=== PATIENT | male | born 1975 | race Caucasian/White ===

== ENCOUNTER 2025-04-20 10:46 | Inpatient (IN) ==
[2025-04-20] MEDS: OPTIRAY 320 125ml IV ONE (11:11)
--- NOTE | 2025-04-20 11:26 | Emergency Department Note ---
Impression & Plan Stroke-like symptoms, Diplopia, Leg weakness ED Provider Note NAME: CONCEPCION FAULKNER AGE: 50 SEX: M : 1975 ARRIVES VIA: Walk-In INFORMANT: Patient ED PROVIDER(S): Herb Eller DO CHIEF COMPLAINT: Double vision and right leg weakness and numbness HPI: Patient is a 50-year-old male who presents to the ER for right leg numbness in combination with weakness with pushing down and lifting up which has been present for the past 1 to 2 weeks he thinks. This Sunday he has noticed double vision. He denies any weakness or numbness in the arms or legs. No chest pain or shortness of breath. No nausea, vomiting, or diarrhea. No dysuria, urgency, or frequency. No other exacerbating or remitting factors. Double vision is seeing 2 images [id number]. If he closes 1 eye it resolves. ADDITIONAL HISTORY OBTAINED: Per HPI Chronic Medical/Social Conditions Affecting Care: Per HPI PAST MEDICAL HISTORY:See Below PAST SURGICAL HISTORY:See Below FAMILY HISTORY:See Below SOCIAL HISTORY:See Below HOME MEDICATIONS:See Below ALLERGIES:See Below VITALS:See Below PHYSICAL EXAMINATION: GENERAL: Sitting up in bed, alert, well appearing, well nourished, no distress, non-toxic EYE EXAM: normal conjunctiva. PERRL and EOM's grossly intact. OROPHARYNX: no exudate, no erythema, lips, buccal mucosa, and tongue normal and mucous membranes are moist NECK: supple, no nuchal rigidity, no adenopathy, non-tender LUNGS: Clear to auscultation. Normal chest wall mechanics HEART: no murmurs, S1 normal and S2 normal ABDOMEN: abdomen soft, non-tender, normo-active bowel sounds, no masses, no rebound or guarding. BACK: Back is symmetrical on inspection and there is no deformity, no midline tenderness, no CVA tenderness. SKIN: no rashes and no bruising UPPER EXTREMITIES: upper extremities are grossly normal. LOWER EXTREMITIES: Weakness of the right lower extremity with dorsiflexion. NEURO EXAM: Normal sensorium, cranial nerves II-XII intact, normal speech, no weakness of arms, no weakness in the left lower extremity. Unable to dorsiflex right ankle. No weakness with plantarflexion as well.. No drift. Finger to nose intact. Gross sensation intact. MEDICAL DECISION MAKING: Patient is a 50-year-old male who presents to the ER for weakness in the right lower extremity with plantar and dorsiflexion in combination with double vision. He was not a TNK candidate as symptoms started this past Sunday. IV was established and blood work was obtained. Labs showed no significant leukocytosis or anemia. INR unremarkable. BMP with mild hyponatremia at 135. LFTs bilirubin and troponin were negative. CT angios of the head and neck were clean. Case was discussed with telestroke neurology Dr. Vasquez who recommended admission and will place further recommendations. I discussed the case with the hospitalist for further evaluation management treatment. Consults/Care Managements Discussions: Per [facility] Triage Nursing notes reviewed. Limited review of prior medical records performed Vital Signs: reviewed and remarkable for no significant abnormalities Differential diagnosis: Differential Diagnosis includes but is not limited to ischemic Stroke, hemorrhagic stroke, bells palsy, mass, neoplasm, migraine headache, seizure, subarachnoid hemorrhage, TIA, and transient global amnesia. ER treatment provided: See below Diagnostics interpreted by me include EKG and cardiac monitoring as listed below: -Cardiac Monitoring: An order was placed for continuous cardiac monitoring. The monitor shows a rate of 90 with sinus rhythm. -ECG: Spoke with nursing staff on 2 separate occasions and was not obtained and patient was transferred to MRI. Will need to be obtained on the floor. -Laboratory studies:Interpreted by me as stated above in MDM and shown below. Imaging studies: Xrays: As interpreted by me:none CTs show: CT of the head per my pulmonary interpretation showed no acute pathology CT angios of the head and neck were negative per radiology Procedures:none Critical Care: None Past Med/Surg History Problem List (Updated 04/20/25 @ 15:01 by Herb Eller DO) Leg weakness (Acute) Hypertension Diplopia (Acute) Stroke-like symptoms (Acute) Acute pansinusitis Social History Smoking Status: Former smoker Tobacco Type: Cigarettes Feels Safe at Home: Yes Allergies Allergies Allergy/AdvReac Type Severity Reaction Status Date / Time No Known Allergies Allergy Unverified 04/20/25 13:26 Home Meds Home Medications Medication Instructions Recorded Confirmed amlodipine 10 mg tablet 10 mg PO DAILY 04/20/25 04/20/25 chlorthalidone 25 mg tablet 25 mg PO Q OTHER DAY 04/20/25 04/20/25 valsartan 160 mg tablet 160 mg PO DAILY 04/20/25 04/20/25 Results & Data (ED) Vital Signs Vital Signs - 24 hr 04/20/25 10:58 04/20/25 11:29 Temperature 36.4 C L Temperature Source Temporal Artery Scan Pulse Rate 92 H 78 Respiratory Rate 16 Respiratory Effort / Characteristics Non-Labored Spontaneous Respiratory Depth Normal Blood Pressure 137/99 Blood Pressure Mean 111 Pulse Oximetry 96 Oxygen Delivery Method Room Air Sepsis Recent Fever Within 48 Hours No Sepsis New/Unexplained Change in Mental Status No Sepsis Action Taken by Nursing No Action Required Laboratory Data 04/20/25 11:23 04/20/25 11:23 Lab Results 04/20/25 Range/Units 11:23 WBC 7.88 (4.8-10.8) K/ul RBC 4.94 (4.70-6.10) M/uL Hgb 17.2 (14.0-18.0) g/dl Hct 47.6 (42.0-52.0) % MCV 96.4 (80.0-100.0) fL MCH 34.8 H (25.0-34.0) pg MCHC 36.1 H (32.0-36.0) g/dL RDW Std Deviation 42.6 (36.4-46.3) fL RDW Coeff of Lilian 11.9 (11.5-14.5) % Plt Count 222 (130-400) K/uL MPV 10.4 (9.4-12.4) fL Immature Gran % (Auto) 0.4 % Neut % (Auto) 66.5 % Lymph % (Auto) 22.1 % Craven % (Auto) 9.3 % Eos % (Auto) 1.3 % Baso % (Auto) 0.4 % Neut # (Auto) 5.25 (1.40-6.50) K/uL Lymph # (Auto) 1.74 (1.20-3.40) K/uL Craven # (Auto) 0.73 H (0.11-0.59) K/uL Eos # (Auto) 0.10 (0.00-0.50) K/uL Baso # (Auto) 0.03 (0.00-0.20) K/uL Immature Gran # (Auto) 0.03 (0.01-0.20) K/uL PT 11.1 (9.0-12.0) Seconds INR 1.1 (0.9-1.1) APTT 29 (21-31) Seconds PTT Ratio 1.1 Sodium 135 L (136-145) mmol/L Potassium 3.8 (3.5-5.1) mmol/L Chloride 101 (98-107) mmol/L Carbon Dioxide 28 (21-32) mmol/L Anion Gap 6 (3-11) BUN 13 (6-23) mg/dl Creatinine 0.95 (0.6-1.4) mg/dl Est Cr Clr Drug Dosing 109.4 ml/min eGFR 98.73 BUN/Creatinine Ratio 13.7 (10-20) Glucose 115 H (70-99(Fasting)) mg/dl Calcium 9.3 (8.6-10.3) mg/dl Magnesium 2.1 (1.7-2.4) mg/dl Total Bilirubin 1.4 H (0.2-1.0) mg/dl AST 32 (13-39) U/L ALT 59 H (7-52) U/L Alkaline Phosphatase 83 (34-104) U/L Troponin I High Sens 12.4 (0-20) pg/ml Total Protein 7.4 (6.0-8.3) gm/dl Albumin 4.3 (3.4-5.0) gm/dl Globulin 3.1 (2.5-4.0) gm/dl Albumin/Globulin Ratio 1.4 (0.9-2) Administered Medications Discontinued Medications Ioversol (Optiray 320 125ml) 120 ml IV ONCE ONE Stop: 04/20/25 11:11 Last Admin: 04/20/25 11:11 Dose: 120 ml Documented By: [facility] Imaging Data Radiologist's Impression: Head CT 04/20/25 11:04 CT head/brain wo con CLINICAL HISTORY: 50 years-old Male with neuro deficit, acute stroke suspected. Acute stroke like symptoms TECHNIQUE: Multiple axial CT images of the head were obtained without contrast. A dose lowering technique was utilized adhering to the principles of ALARA. COMPARISON: CTA head of same day FINDINGS: No acute intracranial hemorrhage, midline shift, intracranial mass, hydrocephalus, territorial ischemia or abnormal extra-axial collection. The calvarium is intact. Near complete opacification of the nasal sinuses which contain mixed attenuation contents. There are scattered secretions within the sinuses. The bilateral maxillary sinus ostia are expanded. IMPRESSION: 1. No acute intracranial abnormality. 2. Severe paranasal sinus disease with hyperdense material which may represent inspissated mucosal debris. Fungal sinusitis considered less likely.. ACT 112: Negative or not required by law. The above report was generated using voice recognition software. It may contain grammatical, syntax or spelling errors. Electronically signed by: Jorge Heath M.D. 04/20/2025 11:48 AM Head CTA 04/20/25 11:04 CTA ANGIOGRAPHY OF THE HEAD CLINICAL HISTORY: neuro deficit, acute stroke suspected. Double vision. Leg numbness. COMPARISON STUDY: No previous studies for comparison. TECHNIQUE: Helical axial images of the head were obtained following uneventful intravenous administration of 120 cc of Optiray. Sagittal and coronal reconstructions were viewed as well as maximal intensity projections on an independent 3-D workstation. Automated exposure control was utilized for the study. A dose lowering technique was utilized adhering to the principles of ALARA. FINDINGS: Please note that the head CT will be reported separately. No acute intracranial hemorrhage, midline shift or mass effect is present. Brain volume is normal. Ventricular system is normal. There are no extra-axial collections. The bilateral M1, M2, A1 and A2 segments are patent. There is no intracranial aneurysm. Posterior circulation is intact. Note is made of near complete opacification of the nasal sinuses which contain mixed attenuation contents. There are scattered secretions within the sinuses. The bilateral maxillary sinus ostia are expanded. IMPRESSION: 1. No large vessel occlusion. No intracranial aneurysm. 2. Near complete opacification of the sinuses consistent with pansinusitis. Mixed attenuation contents within the sinuses. The findings may represent sinonasal polyposis. Fungal sinusitis is within the differential but considered less likely. ACT 112: Negative or not required by law. Electronically signed by: Bj Mcginnis M.D. 04/20/2025 11:31 AM Neck CTA 04/20/25 11:04 CT angio neck with con CLINICAL HISTORY: neuro deficit, acute stroke suspected. TECHNIQUE: Following the IV administration of 120 of Optiray, CT angiogram of the neck was performed from the aortic arch to the skull base. Images are reviewed in the axial, sagittal, and coronal planes. 3-D MIPS images are created and assessed. IV contrast was administered without complication. All measurements were calculated based on NASCET criteria. A dose lowering technique was utilized adhering to the principles of ALARA. CT DOSE: 1125.4 mGy.cm COMPARISON STUDY: None FINDINGS: Right vertebral artery is dominant and the left vertebral artery terminates in PICA, anatomic variant. No significant narrowing or occlusion seen at the common or internal carotid or vertebral arteries bilaterally. There is severe paranasal sinus disease. IMPRESSION: No significant arterial narrowing or occlusion seen at the neck. ACT 112: Negative or not required by law. The above report was generated using voice recognition software. It may contain grammatical, syntax or spelling errors. Electronically signed by: Concepcion Nicholson M.D. 04/20/2025 11:30 AM Discharge Plan Visit Data Chief Complaint: Visual Disturbance Stated Complaint: DOUBLE VISION, LEG AND HIP PAIN ED Provider: Herb Eller Discharge Problem: Stroke-like symptoms, Diplopia, Leg weakness Condition: Fair Forms Stand Alone Forms: [facility] [employer]!, Medications to Prevent Stroke Prescriptions Prescriptions: No Action chlorthalidone 25 mg tablet 25 mg PO Q OTHER DAY amlodipine 10 mg tablet 10 mg PO DAILY valsartan 160 mg tablet 160 mg PO DAILY Referrals Referrals: John Phillips [Primary Care Provider] - Discharge Problem: Leg weakness Qualifiers: Laterality: right Qualified Code(s): R29.898 - Other symptoms and signs involving the musculoskeletal system
--- NOTE | 2025-04-20 11:31 | CT Scan Report ---
CT angio neck with con CLINICAL HISTORY: neuro deficit, acute stroke suspected. TECHNIQUE: Following the IV administration of 120 of Optiray, CT angiogram of the neck was performed from the aortic arch to the skull base. Images are reviewed in the axial, sagittal, and coronal plane s. 3-D MIPS images are created and assessed. IV contrast was administered without complication. All m easurements were calculated based on NASCET criteria. A dose lowering technique was utilized adherin g to the principles of ALARA. CT DOSE: 1125.4 mGy.cm COMPARISON STUDY: None FINDINGS: Right vertebral artery is dominant and the left vertebral artery terminates in PICA, anatom ic variant. No significant narrowing or occlusion seen at the common or internal carotid or vertebral arteries bilaterally. There is severe paranasal sinus disease. IMPRESSION: No significant arterial narrowing or occlusion seen at the neck. ACT 112: Negative or not required by law. The above report was generated using voice recognition software. It may contain grammatical, syntax o r spelling errors. Electronically signed by: Paramjit Nicholson M.D. 04/20/2025 11:30 AM
--- NOTE | 2025-04-20 11:32 | CT Scan Report ---
CTA ANGIOGRAPHY OF THE HEAD CLINICAL HISTORY: neuro deficit, acute stroke suspected. Double vision. Leg numbness. COMPARISON STUDY: No previous studies for comparison. TECHNIQUE: Helical axial images of the head were obtained following uneventful intravenous administr ation of 120 cc of Optiray. Sagittal and coronal reconstructions were viewed as well as maximal inten sity projections on an independent 3-D workstation. Automated exposure control was utilized for the study. A dose lowering technique was utilized adhering to the principles of ALARA. FINDINGS: Please note that the head CT will be reported separately. No acute intracranial hemorrhage, midline shift or mass effect is present. Brain volume is normal. Ventricular system is normal. There are no extra-axial collections. The bilateral M1, M2, A1 and A2 segments are patent. There is no int racranial aneurysm. Posterior circulation is intact. Note is made of near complete opacification of t he nasal sinuses which contain mixed attenuation contents. There are scattered secretions within the sinuses. The bilateral maxillary sinus ostia are expanded. IMPRESSION: 1. No large vessel occlusion. No intracranial aneurysm. 2. Near complete opacification of the sinuses consistent with pansinusitis. Mixed attenuation content s within the sinuses. The findings may represent sinonasal polyposis. Fungal sinusitis is within the differential but considered less likely. ACT 112: Negative or not required by law. Electronically signed by: Bj Mcginnis M.D. 04/20/2025 11:31 AM
[2025-04-20 11:50] LABS: Hematocrit (blood only) 47.6 % (42.0-52.0); Hemoglobin 17.2 g/dl (14.0-18.0); Immature Granulocytes # (auto) 0.03 K/uL (0.01-0.20); Immature Granulocytes % (auto) 0.4 %; Mean Corpuscular Hemoglobin 34.8 pg (25.0-34.0); Mean Corpuscular Volume 96.4 fL (80.0-100.0); Platelet Count 222 K/uL (130-400); RDW Standard Deviation 42.6 fL (36.4-46.3); Red Blood Count 4.94 M/uL (4.70-6.10); White Blood Count 7.88 K/ul (4.8-10.8)
--- NOTE | 2025-04-20 11:50 | CT Scan Report ---
CT head/brain wo con CLINICAL HISTORY: 50 years-old Male with neuro deficit, acute stroke suspected. Acute stroke like sy mptoms TECHNIQUE: Multiple axial CT images of the head were obtained without contrast. A dose lowering tech nique was utilized adhering to the principles of ALARA. COMPARISON: CTA head of same day FINDINGS: No acute intracranial hemorrhage, midline shift, intracranial mass, hydrocephalus, territorial ischem ia or abnormal extra-axial collection. The calvarium is intact. Near complete opacification of the nasal sinuses which contain mixed attenu ation contents. There are scattered secretions within the sinuses. The bilateral maxillary sinus osti a are expanded. IMPRESSION: 1. No acute intracranial abnormality. 2. Severe paranasal sinus disease with hyperdense material which may represent inspissated mucosal de bris. Fungal sinusitis considered less likely.. ACT 112: Negative or not required by law. The above report was generated using voice recognition software. It may contain grammatical, syntax o r spelling errors. Electronically signed by: Jorge Heath M.D. 04/20/2025 11:48 AM
[2025-04-20 12:08] LABS: Alanine Aminotransferase 59.0 U/L (7-52); Albumin Globulin Ratio 1.4 (0.9-2); Albumin Level 4.3 gm/dl (3.4-5.0); Alkaline Phosphatase 83.0 U/L (34-104); Anion Gap 6.0 (3-11); Bilirubin,Total 1.4 mg/dl (0.2-1.0); Blood Urea Nitrogen 13.0 mg/dl (6-23); Calcium 9.3 mg/dl (8.6-10.3); Carbon Dioxide 28.0 mmol/L (21-32); Chloride 101.0 mmol/L (98-107); Creatinine Clr Calc Pharmacy 109.4 ml/min; Globulin 3.1 gm/dl (2.5-4.0); Glucose 115.0 mg/dl (70-99(Fasting)); Magnesium 2.1 mg/dl (1.7-2.4); Potassium 3.8 mmol/L (3.5-5.1); Sodium 135.0 mmol/L (136-145); Total Protein 7.4 gm/dl (6.0-8.3)
[2025-04-20 12:20] LABS: INR 1.1 (0.9-1.1); Partial Thromboplastin Time 29 Seconds (21-31); Prothrombin Time 11.1 Seconds (9.0-12.0)
[2025-04-20] MEDS ORDERED: cefTRIAXone SODIUM 2,000 MG/50 ML BAG IV STA (12:20)
--- NOTE | 2025-04-20 12:47 | History & Physical Report ---
Date of Service April 20, 2025 Assessment & Plan (1) Acute pansinusitis: (2) Stroke-like symptoms: (3) Diplopia: (4) Hypertension: Plan This patient is a 50-year-old male with PMHx of HTN. #Pansinusitis Head CT on arrival revealed severe paranasal sinus disease Will head/neck CTA revealed no large vessel occlusions, it did note near complete opacification consistent with pansinusitis; fungal sinusitis is within the differential but less likely Ceftriaxone 2000 mg IV x 1 Will plan to initiate Augmentin 875-125 mg tablets BID x 7 days If no improvement, could consider nasal irrigation or intranasal glucocorticoids #Strokelike symptoms | diplopia Patient's symptoms are >72h at time of admission; not a TNKase candidate No prior h/o stroke DDx includes diplopia in the setting of uncontrolled HTN + acute sinusitis However, this would not explain his right lower extremity deficits Clinically, he exhibits 2/5 dorsiflexion in the right ankle when compared to 5/5 in the left ankle Initial head imaging (as above) Brain MRI ordered, pending Echocardiogram with bubble study ordered, pending Dysphagia screen ordered ABCD2 score for TIA: 5 Aspirin 325 mg p.o. x 1 loading dose given in the ED Initiate DAPT with aspirin 81 mg daily and Plavix 75 mg daily #HTN No need for permissive hypertension given patient is now > 72h out from initially developing diplopia Continue amlodipine, valsartan daily Continue chlorthalidone every other day Disposition: Obs - admit to MedSurg telemetry VTE PPx: SCDs + DAPT History of Present Illness Chief Complaint: Visual disturbance Primary Care Provider: John Phillips Mr. Layne is a 50-year-old male with PMH of HTN. He presented on 04/20 after developing double vision in both eyes. Patient first noticed double vision upon waking on Tuesday 04/17. Since that time, double vision has been constant in both eyes. No prior history of issues with his eyes. Patient does not wear glasses or contacts at baseline. He does not follow with an eye doctor. Additionally, he notes that he has had right leg weakness x 2 weeks. He feels like his right leg is "asleep" all the time. Not painful. 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 Additionally, patient has had difficulty with taste and smell over the past year. No sick contacts to his knowledge. No prior history of strokes or TIAs. Patient denies slurred speech or facial droop. He denies headaches. While he does not have a personal history of diabetes, he does have a family history of diabetes. No prior history of thyroid issues. Patient took his regular morning medicine today. He takes valsartan 160 mg daily, amlodipine 10 mg daily, and chlorthalidone 25 mg every other day (which she last took yesterday). He denies any missed doses over the past week. He does check his blood pressure regularly at home with a blood pressure cuff, and reports that his most recent blood pressure was ~140/108 on Sunday. Patient denies smoking, tobacco use, or alcohol use in the past 2 days. He has had "white" nasal discharge that has been thick over the past week. NKDA. No prior issues with taking aspirin. No recent trauma to the head, neck, or right leg. No prior history of vertigo. Patient's vitals are stable at time of admission. ED course: Ceftriaxone 2000 mg IV ROS: Patient endorses diplopia (in both eyes), and right LE and hip weakness/numbness/tingling. Patient denies fever, chills, night-sweats, dizziness, lightheadedness with walking, headache, photophobia, cough, SOB, pleuritic CP, chest pain, abdominal pain, N/V/D, change in urinary/bowel habits, N/T in the UEs, N/T in the LLE, or pain in the RLE. Allergies Allergy/AdvReac Type Severity Reaction Status Date / Time No Known Allergies Allergy Unverified 04/20/25 13:26 Home Medications Medication Instructions Recorded Confirmed Type amlodipine 10 mg tablet 10 mg PO DAILY 04/20/25 04/20/25 History chlorthalidone 25 mg tablet 25 mg PO Q OTHER DAY 04/20/25 04/20/25 History valsartan 160 mg tablet 160 mg PO DAILY 04/20/25 04/20/25 History Past Med/Surg History Problem List (Updated 04/20/25 @ 15:01 by Herb Eller DO) Leg weakness (Acute) Hypertension Diplopia (Acute) Stroke-like symptoms (Acute) Acute pansinusitis Social History Smoking Status: Former smoker Tobacco Type: Cigarettes Second Hand Exposure: No; Do You Dip or Chew Tobacco: No; Tobacco Cessation Education Requested by Patient: No Hx Alcohol Use: Yes Alcohol type: beer Hx Substance Use: No Preferred Language: Lao Communication Ability: Effective Home Health Clinical Supervisor Required: No Beliefs That Will Affect Care: None Current Living Situation: Alone Other Information That Helps Us Care for You: No Feels Safe at Home: Yes Safety Concerns: Feels Safe At This Time Assistive Devices: None Review of Systems Review of Systems: See HPI above Physical Exam Physical Exam: General: no acute distress; pleasant affect; non-toxic appearing; cooperative; SpO2 96% on RA HEENT: normocephalic, atraumatic; PERRLA with EOMs intact; vision and hearing intact; patient demonstrates ability to protrude and wiggle tongue bilaterally without unilateral deficits; patient demonstrates me to smile, frown, and lift eyebrows without unilateral deficits Neck: supple; trachea midline Skin: warm, dry without signs of tenting; no cyanosis; no rashes, bruising, lesions, or erythema noted CV: chest wall NTP; RRR; S1/S2 normal; no murmurs/rubs/gallops; pulses intact and symmetric at radial, DP, and PT Lungs: no acute respiratory distress; symmetrical chest wall expansion; clear breath sounds across all lung duong w/o adventitious sounds; no wheezing ABD: Soft, NTP; BS present; no rebound/guarding; no distention MSK: no tics or fasciculations; no edema noted in the LEs b/l, nonerythematous; 5/5 project controller strength bilaterally LEs: 2/5 dorsiflexion in the left ankle compared to 5/5 in the right ankle; 5/5 plantarflexion in the ankles bilaterally Neuro: A&Ox3; normal mood and affect; negative pronator drift; fluent speech; no slurred speech or facial droop appreciated; patient reports diminished sensation in the left lower extremity compared to the right lower extremity assessed via light touch at the feet, ankles, and knees Results & Data Results & Data Vital Signs (Past 12 Hours) Vital Signs Temp Pulse Resp BP Pulse Ox O2 Del Method 04/20/25 11:29 78 04/20/25 10:58 36.4 C L 92 H 16 137/99 96 Room Air Laboratory Results Abnormal lab results 04/20/25 Range/Units 11:23 MCH 34.8 H (25.0-34.0) pg MCHC 36.1 H (32.0-36.0) g/dL [place] # (Auto) 0.73 H (0.11-0.59) K/uL Sodium 135 L (136-145) mmol/L Glucose 115 H (70-99(Fasting)) mg/dl Total Bilirubin 1.4 H (0.2-1.0) mg/dl ALT 59 H (7-52) U/L Diagnostic Findings Head CT 04/20/25 11:04 CT head/brain wo con CLINICAL HISTORY: 50 years-old Male with neuro deficit, acute stroke suspected. Acute stroke like symptoms TECHNIQUE: Multiple axial CT images of the head were obtained without contrast. A dose lowering technique was utilized adhering to the principles of ALARA. COMPARISON: CTA head of same day FINDINGS: No acute intracranial hemorrhage, midline shift, intracranial mass, hydrocephalus, territorial ischemia or abnormal extra-axial collection. The calvarium is intact. Near complete opacification of the nasal sinuses which contain mixed attenuation contents. There are scattered secretions within the sinuses. The bilateral maxillary sinus ostia are expanded. IMPRESSION: 1. No acute intracranial abnormality. 2. Severe paranasal sinus disease with hyperdense material which may represent inspissated mucosal debris. Fungal sinusitis considered less likely.. ACT 112: Negative or not required by law. The above report was generated using voice recognition software. It may contain grammatical, syntax or spelling errors. Electronically signed by: Jorge Heath M.D. 04/20/2025 11:48 AM Head CTA 04/20/25 11:04 CTA ANGIOGRAPHY OF THE HEAD CLINICAL HISTORY: neuro deficit, acute stroke suspected. Double vision. Leg numbness. COMPARISON STUDY: No previous studies for comparison. TECHNIQUE: Helical axial images of the head were obtained following uneventful intravenous administration of 120 cc of Optiray. Sagittal and coronal reconstructions were viewed as well as maximal intensity projections on an independent 3-D workstation. Automated exposure control was utilized for the study. A dose lowering technique was utilized adhering to the principles of ALARA. FINDINGS: Please note that the head CT will be reported separately. No acute intracranial hemorrhage, midline shift or mass effect is present. Brain volume is normal. Ventricular system is normal. There are no extra-axial collections. The bilateral M1, M2, A1 and A2 segments are patent. There is no intracranial aneurysm. Posterior circulation is intact. Note is made of near complete opacification of the nasal sinuses which contain mixed attenuation contents. There are scattered secretions within the sinuses. The bilateral maxillary sinus ostia are expanded. IMPRESSION: 1. No large vessel occlusion. No intracranial aneurysm. 2. Near complete opacification of the sinuses consistent with pansinusitis. Mixed attenuation contents within the sinuses. The findings may represent sinonasal polyposis. Fungal sinusitis is within the differential but considered less likely. ACT 112: Negative or not required by law. Electronically signed by: Bj Mcginnis M.D. 04/20/2025 11:31 AM Neck CTA 04/20/25 11:04 CT angio neck with con CLINICAL HISTORY: neuro deficit, acute stroke suspected. TECHNIQUE: Following the IV administration of 120 of Optiray, CT angiogram of the neck was performed from the aortic arch to the skull base. Images are reviewed in the axial, sagittal, and coronal planes. 3-D MIPS images are created and assessed. IV contrast was administered without complication. All measurements were calculated based on NASCET criteria. A dose lowering technique was utilized adhering to the principles of ALARA. CT DOSE: 1125.4 mGy.cm COMPARISON STUDY: None FINDINGS: Right vertebral artery is dominant and the left vertebral artery terminates in PICA, anatomic variant. No significant narrowing or occlusion seen at the common or internal carotid or vertebral arteries bilaterally. There is severe paranasal sinus disease. IMPRESSION: No significant arterial narrowing or occlusion seen at the neck. ACT 112: Negative or not required by law. The above report was generated using voice recognition software. It may contain grammatical, syntax or spelling errors. Electronically signed by: Paramjit Nicholson M.D. 04/20/2025 11:30 AM ECG Additional Comments: ECG ordered, pending Code Status & VTE Plan Code Status Full code VTE Prophylaxis Plan VTE Prophylaxis will be ordered: Yes PG Care Time/CCT Total # of Minutes Spent Total Time Spent with Patient: Total time spent is greater than 50% in coordination of care (as documented) at patient's floor/unit and/or counseling patient: Coding [place] [address] INT INP/OBS CARE 3/75MIN Patient Type Established Medical Decision Making High Complexity Diagnoses Acute pansinusitis J01.40 Stroke-like symptoms R29.90 Diplopia H53.2 Hypertension I10
[2025-04-20] MEDS ORDERED: PHARMACIST DISCHARGE MED REC CONSULT PRN (13:28)
--- NOTE | 2025-04-20 14:34 | XCELERA ---
[id number]
--- NOTE | 2025-04-20 15:20 | Magnetic Resonance Report ---
MRI OF THE BRAIN WITHOUT IV CONTRAST CLINICAL HISTORY: Double vision. Right leg numbness. COMPARISON STUDY: Head CT and CTA of the head performed earlier today. TECHNIQUE: MRI of the brain was performed utilizing various T1 and T2-weighted sequences in the axial , sagittal, and coronal planes. IV contrast was not administered for this examination. FINDINGS: Brain parenchyma: There are no foci of restricted diffusion to suggest acute infarct. No acute intrac ranial hemorrhage, midline shift or mass effect is present. No intracranial masses are identified on unenhanced exam. There is no significant parenchymal signal abnormality. Ventricles, sulci, and cisterns: There is no hydrocephalus. The basal cisterns are patent. There are no extra-axial collections. Pituitary and sella: Unremarkable. Intracranial vasculature: Flow-voids for the major intracranial vessels are present. Orbits: Orbital contents are unremarkable. Sinuses and mastoids: Incomplete opacification of the paranasal sinuses is better depicted on head CT performed earlier today. Mixed signal intensity contents within the sinuses are noted. There is wide omar of the bilateral maxillary sinus ostia. Calvarium: No calvarial lesions are identified. Cervical cord: Partially visualized cervical spinal cord is normal in morphology and signal intensity . IMPRESSION: 1. No acute intracranial findings. 2. Findings consistent with pansinusitis. ACT 112: Negative or not required by law. Electronically signed by: Bj Mcginnis M.D. 04/20/2025 3:18 PM
[2025-04-20] MEDS ORDERED: ASPIRIN 81 MG CHEW PO STA (16:09)
[2025-04-20] MEDS ORDERED: Nursing to Pharmacy Communication SCH ×2 (16:15)
[2025-04-20] MEDS: ASPIRIN CHEW 324 MG PO STA (17:19)
[2025-04-20] MEDS: ASPIRIN 81 MG CHEW PO ONE (17:20)
[2025-04-20] MEDS: cefTRIAXone SODIUM 2,000 MG/50 ML BAG IV STA (19:28)
[2025-04-20] MEDS: ACETAMINOPHEN 325 MG TAB PO PRN (23:20)
[2025-04-21 07:09] LABS: Hematocrit (blood only) 49.4 % (42.0-52.0); Hemoglobin 17.1 g/dl (14.0-18.0); Immature Granulocytes # (auto) 0.03 K/uL (0.01-0.20); Immature Granulocytes % (auto) 0.3 %; Mean Corpuscular Hemoglobin 33.1 pg (25.0-34.0); Mean Corpuscular Volume 95.7 fL (80.0-100.0); Platelet Count 228 K/uL (130-400); RDW Standard Deviation 42.4 fL (36.4-46.3); Red Blood Count 5.16 M/uL (4.70-6.10); White Blood Count 9.68 K/ul (4.8-10.8)
[2025-04-21 07:27] LABS: Anion Gap 8.0 (3-11); Blood Urea Nitrogen 14.0 mg/dl (6-23); Calcium 9.2 mg/dl (8.6-10.3); Carbon Dioxide 27.0 mmol/L (21-32); Chloride 103.0 mmol/L (98-107); Cholesterol 134.0 mg/dl (0-200); Creatinine Clr Calc Pharmacy 102.0 ml/min; Glucose 106.0 mg/dl (70-99(Fasting)); HDL Cholesterol 34.0 mg/dl; Potassium 3.6 mmol/L (3.5-5.1); Sodium 138.0 mmol/L (136-145); Triglycerides 73.0 mg/dl (0-150)
[2025-04-21] MEDS: CHLORTHALIDONE 25 MG TAB PO SCH (07:29)
[2025-04-21] MEDS: AMOXICILLIN/CLAVULANATE 875 MG TAB PO SCH (07:30)
[2025-04-21] MEDS: VALSARTAN 80 MG TAB PO SCH (07:30)
[2025-04-21] MEDS: ASPIRIN 81 MG ECTAB PO SCH (07:31)
[2025-04-21] MEDS: CLOPIDOGREL BISULFATE 75 MG TAB PO SCH (07:32)
[2025-04-21 07:38] LABS: Thyroid Stimulating Hormone 2.33 uIu/ml (0.300-4.500)
[2025-04-21 08:47] LABS: Hemoglobin A1C 5.3 % (4.5-5.6)
[2025-04-21] MEDS: MAGNESIUM SULFATE / D5W 1 GM/100 ML BAG IV ONE (10:04)
--- NOTE | 2025-04-21 11:56 | Discharge Summary ---
Discharge Summary Date of Service April 21, 2025 Principal Dx & Hospital Course #1 = Principal Diagnosis (1) Acute pansinusitis: (2) Stroke-like symptoms: (3) Diplopia: (4) Hypertension: Plan This patient is a 50-year-old male with PMHx of HTN. He presented on 04/20 after developing diplopia upon waking the morning of Tuesday 04/17. #Pansinusitis Head CT on arrival revealed severe paranasal sinus disease While head/neck CTA revealed no large vessel occlusions, it did note near complete opacification consistent with pansinusitis; fungal sinusitis is within the differential but less likely Ceftriaxone 2000 mg IV x 2 in the hospital Clinically, patient does report that his nasal discharge is improving at time of discharge Will plan to initiate Augmentin 875-125 mg tablets BID x 5 additional days If no improvement, could consider nasal irrigation or intranasal glucocorticoids #Strokelike symptoms | bilateral diplopia Patient's symptoms are >72h at time of admission; not a TNKase candidate No prior h/o stroke Patient does not wear glasses or contacts at baseline DDx includes diplopia in the setting of uncontrolled HTN + acute pansinusitis However, this did not initially explain his RLE deficits Clinically, he exhibits 2/5 dorsiflexion in the right ankle when compared to 5/5 in the left ankle Initial head imaging (as above) Brain MRI did not reveal any acute intracranial findings, but was consistent with pansinusitis Echocardiogram with bubble study did not reveal atrial septal defect TSH, A1c, and lipid panel all WNL Suspect that patient's diplopia could be due to pansinusitis plus uncontrolled hypertension However, DDx still includes TIA Will plan to discharge patient on aspirin 81 mg p.o. daily x 21 days, or until seen for follow-up Patient reports his diplopia has not resolved at time of discharge Will touch base with case management about setting up ophthalmology appointment as soon as possible Patient instructed not to drive until seen by ophthalmology for follow-up #Right lower extremity pain/weakness Patient began having pain in the right hip shooting down his leg on the morning of discharge Suspected piriformis syndrome Magnesium sulfate 1 g IV x 1 Diclofenac gel application BID PRN PT evaluation appreciated provide exercises for home #HTN No need for permissive hypertension given patient is now > 72h out from initially developing diplopia Continue amlodipine Continue chlorthalidone every other day Continue valsartan, and will plan to switch from QAM -> QPM If no improvement at this adjustment, could consider increasing current regimen Day of discharge 04/21: Patient reports that he has new onset of pain shooting down from his right hip into his right foot. While yesterday, he reported he only had weakness in his right lower extremity, he is now experiencing pain worse with getting up and moving around. His vision is approximate the same as yesterday (blurry vision in both eyes). However, whenever he closes 1 eye, he can see clearly. Patient reports that his nasal discharge has improved, and is no longer having "white, thick" nasal discharge. However his taste and smell still feel off. Additionally, patient reports that he forgot to mention that, approximately 2 weeks ago, he had an episode where he felt his "vision was going bad". 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 Overall, the patient feels well, but is still concerned regarding his double vision. ROS: Patient endorses double vision, nasal discharge (improving), loss of taste and smell, and pain/weakness shooting down the right hip into the foot. Patient denies fever, chills, night sweats, tinnitus, photophobia, neck pain, chest pain, SOB, cough, abdominal pain, N/V/D, urinary or fecal incontinence, saddle esthesia, or changes in urinary or bowel habits. Disposition: Discharge home with close ophthalmology follow-up Notes For Next Care Provider Patient admitted 04/20 - 04/21 for stroke-work up in the setting of new-onset, non-resolving diplopia and RLE deficits. While stroke workup was negative (brain MRI negative for acute abnormalities) DDx still includes TIA, and will plan to discharge patient on aspirin 81 mg daily x 21 days. It is possible that patient's elevated blood pressure is leading to diplopia. We will switch his valsartan from 160 mg in the morning to 160 mg at night and see if this assists with better blood pressure control throughout the day. Could consider increasing of his current medications if no improvement It is suspected that his right lower extremity deficits are unrelated, and due to piriformis syndrome. Diclofenac gel Rx on discharge. Case management working to set him up with ophthalmology appointment for ongoing diplopia as soon as possible. Patient has been instructed not to drive until seen by ophthalmology. Admission HPI Per Admitting Provider Mr. Layne is a 50-year-old male with PMH of HTN. He presented on 04/20 after developing double vision in both eyes. Patient first noticed double vision upon waking on Tuesday 04/17. Since that time, double vision has been constant in both eyes. No prior history of issues with his eyes. Patient does not wear glasses or contacts at baseline. He does not follow with an eye doctor. Additionally, he notes that he has had right leg weakness x 2 weeks. He feels like his right leg is "asleep" all the time. Not painful. No recent injuries to his leg, but he does work as a aerospace products sales engineer, reports he had something in his back pocket while sitting all day for a football game; was concerned that he might of tweaked something in his leg. Additionally, patient has had difficulty with taste and smell over the past year. No sick contacts to his knowledge. No prior history of strokes or TIAs. Patient denies slurred speech or facial droop. He denies headaches. While he does not have a personal history of diabetes, he does have a family history of diabetes. No prior history of thyroid issues. Patient took his regular morning medicine today. He takes valsartan 160 mg daily, amlodipine 10 mg daily, and chlorthalidone 25 mg every other day (which she last took yesterday). He denies any missed doses over the past week. He does check his blood pressure regularly at home with a blood pressure cuff, and reports that his most recent blood pressure was ~140/108 on Sunday. Patient denies smoking, tobacco use, or alcohol use in the past 2 days. He has had "white" nasal discharge that has been thick over the past week. NKDA. No prior issues with taking aspirin. No recent trauma to the head, neck, or right leg. No prior history of vertigo. Patient's vitals are stable at time of admission. ED course: Ceftriaxone 2000 mg IV ROS: Patient endorses diplopia (in both eyes), and right LE and hip weakness/numbness/tingling. Patient denies fever, chills, night-sweats, dizziness, lightheadedness with walking, headache, photophobia, cough, SOB, pleuritic CP, chest pain, abdominal pain, N/V/D, change in urinary/bowel habits, N/T in the UEs, N/T in the LLE, or pain in the RLE. Admission Exam Per Admitting Provider General: no acute distress; pleasant affect; non-toxic appearing; cooperative; SpO2 96% on RA HEENT: normocephalic, atraumatic; PERRLA with EOMs intact; vision and hearing intact; patient demonstrates ability to protrude and wiggle tongue bilaterally without unilateral deficits; patient demonstrates me to smile, frown, and lift eyebrows without unilateral deficits Neck: supple; trachea midline Skin: warm, dry without signs of tenting; no cyanosis; no rashes, bruising, lesions, or erythema noted CV: chest wall NTP; RRR; S1/S2 normal; no murmurs/rubs/gallops; pulses intact and symmetric at radial, DP, and PT Lungs: no acute respiratory distress; symmetrical chest wall expansion; clear breath sounds across all lung duong w/o adventitious sounds; no wheezing ABD: Soft, NTP; BS present; no rebound/guarding; no distention MSK: no tics or fasciculations; no edema noted in the LEs b/l, nonerythematous; 5/5 water resources project manager strength bilaterally LEs: 2/5 dorsiflexion in the left ankle compared to 5/5 in the right ankle; 5/5 plantarflexion in the ankles bilaterally Neuro: A&Ox3; normal mood and affect; negative pronator drift; fluent speech; no slurred speech or facial droop appreciated; patient reports diminished sensation in the left lower extremity compared to the right lower extremity assessed via light touch at the feet, ankles, and knees Discharge Exam General: no acute distress; pleasant affect; patient seen in conjunction with Dr. Plascencia at bedside; cooperative; SpO2 93% on RA HEENT: normocephalic, atraumatic; PERRLA with EOMs intact; vision and hearing intact; patient demonstrates ability to protrude and wiggle tongue bilaterally without unilateral deficits; patient demonstrates me to smile, frown, and lift eyebrows without unilateral deficits Neck: supple; trachea midline Skin: warm, dry without signs of tenting; no cyanosis; no rashes, bruising, lesions, or erythema noted CV: chest wall NTP; RRR; S1/S2 normal; no murmurs/rubs/gallops; pulses intact and symmetric at radial, DP, and PT Lungs: no acute respiratory distress; symmetrical chest wall expansion; clear breath sounds across all lung duong w/o adventitious sounds; no wheezing ABD: Soft, NTP; BS present; no rebound/guarding; no distention MSK: no tics or fasciculations; no edema noted in the LEs b/l, nonerythematous; 5/5 water resources project manager strength bilaterally LEs: Patient is still exhibiting deficits in the left ankle: 2/5 dorsiflexion in the left ankle compared to 5/5 in the right ankle; 5/5 plantarflexion in the ankles bilaterally; 5/5 strength when flexing the knees bilateral strength; patient appreciates ability to stand and ambulate independently Back: Patient exhibits point tenderness at the right piriformis with palpation Neuro: A&Ox3; normal mood and affect; negative pronator drift; fluent speech; no slurred speech or facial droop appreciated Discharge Plan Discharge Items Patient Disposition: Home - Self-Care Reason For Visit: CVA/TIA R/O DIPLOPIA Discharge Diagnosis: Diplopia, piriformis syndrome Condition on Discharge: Fair Activity: As commented below Activity Comment: Gradually increase previous activity as tolerated Non-emergency contact: Primary Care Provider and Lean Engineer Call non-emergency contact if: you have any medication questions, your symptoms worsen, your pain is not controlled and you have a fever Follow-up/Referrals: John Phillips [Primary Care Provider] - 04/28/25 10:40 am Diet: Regular Addtl Attending Provider Instructions: You were hospitalized at [facility] from 04/20 - 04/21 after developing double vision in both eyes. On arrival, you are supported you had weakness in your right lower extremity, as if your leg had "fallen asleep". Due to concern for vision changes and unilateral deficits, you underwent a stroke workup. Imaging of your brain revealed no acute abnormalities. However, with these vision changes, we recommend that you continue to take aspirin 81 mg daily to prevent TIAs (or "transient ischemic attacks" or "mini strokes"), which may not show up on imaging. It is suspected that your changes in vision could be due to something called "severe pansinusitis", which was seen on imaging. This is where you have inflammation of your sinuses, which could potentially be affecting your vision. We plan to send you home on an antibiotic (Augmentin) for the next several days to see if this improves your symptoms. Our telephonic nurse case manager are currently working to set you up with an ophthalmology appointment as soon as possible for your ongoing blurry vision. Until you are seen by ophthalmology for follow-up and have a full vision exam conducted, please do not drive or operate heavy machinery. Additionally, you noted that you had pain in your right hip shooting down your leg on the morning of discharge. After being assessed at bedside, it is determined that this might be caused by something called "piriformis syndrome". This is where you have swelling and a muscle in your lower back that leads to nerve impingement. Please see attached pamphlet for exercises, which can help to stretch/loosen the piriformis muscle. New prescriptions on discharge: - Augmentin 875-125 mg tablets twice daily x 5 days - Diclofenac 4% gel application to the right lower back/hip twice daily as needed for pain - Aspirin 81 mg daily x 21 days Medication adjustment: Please stop taking valsartan 160 mg in the morning, and switch to taking it at nighttime before bed Please plan to follow-up with your PCP in the next 7 to 10 days for a transitional care appointment. If you develop any new or worsening symptoms, such as fever, chills, full loss of vision, headaches, intractable nausea and vomiting, slurred speech, facial droop, or worsening of unilateral deficits, please return to the emerged department immediately. It was a pleasure taking care of you. Please reach out with any questions or concerns. Sincerely, The Hospital medicine team at [facility] Pending Studies at Discharge: No Stand-Alone Forms: My [facility] Medications and DC Order Prescriptions: New amoxicillin-pot clavulanate 875-125 mg Tablet 1 tab PO BIDM 5 Days Qty: 10 0RF Rx Instructions: Take 1 tablet by mouth twice daily aspirin 81 mg Tablet,Delayed Release (Dr/Ec) 81 mg PO QAM Qty: 21 0RF Rx Instructions: Take 1 tablet by mouth daily x 21 days diclofenac sodium [Voltaren Arthritis Pain] 1 % Gel 4 g EXT BID PRN (Reason: Piriformis syndrome) Qty: 100 0RF Rx Instructions: Apply 4 g to the right piriformis muscle twice daily as needed for pain Continued chlorthalidone 25 mg tablet 25 mg PO Q OTHER DAY amlodipine 10 mg tablet 10 mg PO DAILY Changed valsartan 160 mg tablet 160 mg PO HS Qty: 0 0RF Discharge Orders: Discharge Order (Routine); Ordered 04/21/25 Ordered By: Tito Hawkins/Other Patient Handouts: Symptoms of Stroke, Hip Rotator (Piriformis) Stretch, ED Double Vision (Diplopia) Admission Data Admit Date/Time: 04/20/25 13:32 Attending Provider: Duglas Plascencia Admit Provider: Duglas Plascencia Primary Care Provider: John Phillips Other Providers: Herb Li Other Interventions: Discharge Summary Assessment (RN) Last Done: 04/21/25 13:09 Hospital Stay Data Consultations 04/20/25 12:20 ED Decision to Admit Stat Diagnostic Imagining Performed 04/20/25 11:04 CT angio head w con Stat CT angio neck with con Stat CT head/brain wo con Stat 04/20/25 13:28 MR brain wo con Urgent Discharge Instructions Given to Patient (Per Discharging Provider) You were hospitalized at [facility] from 04/20 - 04/21 after developing double vision in both eyes. On arrival, you are supported you had weakness in your right lower extremity, as if your leg had "fallen asleep". Due to concern for vision changes and unilateral deficits, you underwent a stroke workup. Imaging of your brain revealed no acute abnormalities. However, with these vision changes, we recommend that you continue to take aspirin 81 mg daily to prevent TIAs (or "transient ischemic attacks" or "mini strokes"), which may not show up on imaging. It is suspected that your changes in vision could be due to something called "severe pansinusitis", which was seen on imaging. This is where you have inflammation of your sinuses, which could potentially be affecting your vision. We plan to send you home on an antibiotic (Augmentin) for the next several days to see if this improves your symptoms. Our telephonic nurse case manager are currently working to set you up with an ophthalmology appointment as soon as possible for your ongoing blurry vision. Until you are seen by ophthalmology for follow-up and have a full vision exam conducted, please do not drive or operate heavy machinery. Additionally, you noted that you had pain in your right hip shooting down your leg on the morning of discharge. After being assessed at bedside, it is determined that this might be caused by something called "piriformis syndrome". This is where you have swelling and a muscle in your lower back that leads to nerve impingement. Please see attached pamphlet for exercises, which can help to stretch/loosen the piriformis muscle. New prescriptions on discharge: - Augmentin 875-125 mg tablets twice daily x 5 days - Diclofenac 4% gel application to the right lower back/hip twice daily as needed for pain - Aspirin 81 mg daily x 21 days Medication adjustment: Please stop taking valsartan 160 mg in the morning, and switch to taking it at nighttime before bed Please plan to follow-up with your PCP in the next 7 to 10 days for a transitional care appointment. If you develop any new or worsening symptoms, such as fever, chills, full loss of vision, headaches, intractable nausea and vomiting, slurred speech, facial droop, or worsening of unilateral deficits, please return to the emerged department immediately. It was a pleasure taking care of you. Please reach out with any questions or concerns. Sincerely, The Hospital medicine team at [facility] Total Time Total Time Spent Total Time Spent (In Minutes): 25 Coding [place] [address] IN/OBS DISCH 30 MIN/LESS Patient Type Established History Comprehensive Exam Comprehensive Medical Decision Making Moderate Complexity Diagnoses Acute pansinusitis J01.40 Stroke-like symptoms R29.90 Diplopia H53.2 Hypertension I10
[2025-04-21] MEDS: DICLOFENAC SOD 1% GEL 100 GM TUBE EXT SCH (12:07)
[2025-04-21] MEDS ORDERED: STROKE PATIENT DISCHARGE STA (13:04)
--- NOTE | 2025-04-21 13:44 | Pharmacy Report ---
- Date of Service April 21, 2025 - Pharmacy CVA/TIA Medication Review Medications to Prevent Stroke handout has been added to the patients discharge packet. Antiplatelet(s) * Aspirin 81 mg PO daily + Plavix 75 mg PO daily * To continue only Aspirin at discharge Cholesterol * High intensity statin deferred due to no evidence of atherosclerosis (cerebral, coronary, or PVD) DVT Prophylaxis * SCD knee Therapeutic Anticoagulation * No history of Afib/Aflutter noted Type 2 Diabetes * Patient does not have T2DM
[2025-04-21 14:37] VITALS: BP 144/94; PULSE 89; RESP 12; TEMP 99.1; O2SAT 96
--- NOTE | 2025-04-22 15:06 | Pharmacy Report ---
Pharmacist Stroke Counseling - Date of Service April 22, 2025 - Scope: Pharmacy has been consulted to provide medication discharge counseling for this patient admitted with transient ischemic attack as per the Pharmacist Discharge Counseling for Stroke Patients Protocol. - Medications on Discharge: Home Medications Medication Instructions Recorded Confirmed amlodipine 10 mg tablet 10 mg PO DAILY 04/20/25 04/20/25 chlorthalidone 25 mg tablet 25 mg PO Q OTHER DAY 04/20/25 04/20/25 New Rx's Medication Instructions Recorded amoxicillin 875 mg-potassium 1 tab PO BIDM 5 days #10 tabs 04/21/25 clavulanate 125 mg tablet aspirin 81 mg tablet,delayed 81 mg PO QAM #21 tabs 04/21/25 release diclofenac sodium 1 % topical gel 4 g EXT BID PRN Piriformis 04/21/25 (Voltaren Arthritis Pain) syndrome #100 grams valsartan 160 mg tablet 160 mg PO HS #0 tabs 04/21/25 - Action: The above medications, specifically ones for stroke treatment/prophylaxis, have been reviewed in detail with the patient and/or patient pharmaceutical sales representative(s) prior to discharge. This includes indication, common adverse reactions, drug interactions, and medication administration. Medication counseling has been employed using the teach-back method to ensure understanding. - Outcome: The patient and/or patient pharmaceutical sales representative(s) have demonstrated understanding of the medications. Additional comments: - counseled on aspirin use - had questions answered regarding antibiotic and voltaren gel - follow up appointment w/ PCP scheduled for tomorrow Thank you for allowing pharmacy to be involved in the care of this patient. Please call [phone] with any additional questions
== END 2025-04-21 15:36 | disposition home or self-care (01) | DRG 153 ==
LOC: ED 10:46 → 2N 13:32